=== PATIENT | female | born 1995 | race Caucasian/White ===

== ENCOUNTER → 2018-03-28 19:55 | Observation (INO) ==
[2018-03-28 18:42] LABS: Amphetamine Screen,Urine Negative ng/mL (Cutoff=1000); Barbiturate Screen,Urine Negative ng/mL (Cutoff=200); Benzodiazepines Screen,Urine Negative ng/mL (Cutoff=200); Cannabinoid Screen,Urine Negative ng/mL (Cutoff = 50); Cocaine Screen,Urine Negative ng/mL (Cutoff= 300); Opiate Screen,Urine Negative ng/mL (Cutoff=300); Phencyclidine Screen,Urine Negative ng/mL (Cutoff=25)
[2018-03-28 19:16] LABS: Bilirubin,Urine Negative (Negative); Blood,Urine Negative (Negative); Clarity,Urine Cloudy (Clear); Color,Urine Yellow (Yellow); Glucose,Urine (UA) Normal (Normal); Ketones,Urine Negative (Negative); Leukocyte Esterase,Urine Negative (Negative); Nitrite,Urine Negative (Negative); Protein,Urine Negative (Neg-Trace); Specific Gravity,Urine 1.018 (1.010-1.025); Urobilinogen,Urine Normal (Normal)
[2018-03-28 19:17] LABS: Bacteria,Urine Few per hpf (None-Few); Hyaline Casts,Urine None Seen per lpf (None-Few); Squamous Epithelial Cell,Urine Many per lpf (None-Few)
--- NOTE | 2018-03-28 19:53 | OB/GYN Progress Note ---
Date of Encounter: 03/28/18 Time of Encounter: 19:51 - Assessment and Plan (1) 30 weeks gestation of Current Visit: Yes Status: Acute (2) Back pain affecting in third trimester Current Visit: Yes Status: Acute Urinalysis negative for UTI Speculum exam shows thin white vaginal discharge, negative ferning, vaginosis panel sent Cervix closed and no contractions seen on monitoring, reactive tracing Discharged home with labor and when to return to triage precautions. Patient listed pharmacy and callback number for results of vaginosis panel when resulted Subjective - Subjective Interval history: 30+1 weeks gestation presents to triage with complaints of lower back and abdominal pain. Patient states she started to have lower back and abdominal pain yesterday, and it has increased today. Patient states there are times the lower abdominal pain feels constant. Denies dysuria, urgency, frequency. Reports good movement, denies vaginal bleeding, but does report an increase in white vaginal discharge and fell she was leaking some clear fluid earlier. Patient with care with Dr. Tripp Antepartum ROS: loss of fluid, movement normal, no vaginal bleeding, no contractions Objective - Vital Signs Vital Signs: Intake and Output 03/28/18 03/28/18 03/28/18 07:59 15:59 23:59 Other: Weight 78.4 kg Patient Weight 03/28/18 23:59 Weight 78.4 kg - Exam FHR: auscultation normal FHR comments: Baseline 135 Abdomen: Present: normal appearance, soft, gravid Cervical dilation: closed Comments: - cva tenderness. - Labs Labs: Abnormal lab results Urine Clarity Cloudy (Clear) A 03/28/18 18:20 Urine Microscopic RBC 3-5 per hpf (0-3) H 03/28/18 18:20 Urine Microscopic WBC 5-15 per hpf (0-3) H 03/28/18 18:20 Ur Squamous Epith Cells Many per lpf (None-Few) H 03/28/18 18:20
[2018-03-28 20:02] LABS: Candida DNA ***DETECTED*** (Not Detect); Gardnerella DNA Not Detected (Not Detect); Trichomonas DNA Not Detected (Not Detect)
== END | disposition home or self-care (01) ==
LOC: 1NENULAB
PROVIDERS: ADMIT Advanced Practice Midwife; ATTEND Advanced Practice Midwife

== ENCOUNTER 2022-05-09 10:00 | Observation (INO) ==
[2022-05-09] MEDS ORDERED: Doxycycline 100 MG in 0.9 % Sodium Chloride Mini Bag 100 ML IVPB ONE (10:06)
[2022-05-09] MEDS: Ringers Solution, Lactated 1,000 ML IVC SCH ×2 (10:51→11:57)
[2022-05-09 10:56] VITALS: O2SAT 100
[2022-05-09 11:09] LABS: Basophils % 0.3 %; Eosinophils # 0.1 K/mcL (0.0-0.6); Eosinophils % 0.9 %; Hematocrit 38.2 % (35.3-44.9); Hemoglobin 13.3 g/dL (11.5-15.4); Immature Granulocytes % 0.1 % (0-4); Lymphocytes # 1.6 K/mcL (0.6-4.6); Lymphocytes % 22.5 %; Mean Corpuscular HGB Conc 34.8 g/dL (31.6-35.5); Mean Corpuscular Hemoglobin 33.5 pg (28.0-33.3); Mean Corpuscular Volume 96.2 fL (83.0-100.0); Mean Platelet Volume 11.8 fL (9.4-12.4); Monocytes # 0.5 K/mcL (0.0-1.3); Neutrophils # 4.9 K/mcL (1.6-8.9); Platelet Count 189 K/mcL (140-400); Red Blood Count 3.97 M/mcL (3.82-4.97); Red Cell Distribution Width 11.3 % (11.5-14.5); Segmented Neutrophils % 69.2 %
[2022-05-09] MEDS ORDERED: Famotidine 20 MG/2 ML VIAL IVP ONE (11:30)
[2022-05-09] MEDS ORDERED: Metoclopramide 10 MG/2 ML VIAL IVP ONE (11:30)
[2022-05-09] MEDS ORDERED: *HR* Propofol 200 MG/20 ML VIAL IVP ONE (12:10)
[2022-05-09] MEDS ORDERED: *HR* Midazolam HCl 2 MG/2 ML VIAL ONE (12:10)
[2022-05-09] MEDS ORDERED: *HR* FentaNYL (PF) 100 MCG/2 ML VIAL ONE (12:10)
[2022-05-09] MEDS ORDERED: Lidocaine -MPF 2% 2 ML VIAL ONE ×2 (12:13→12:25)
[2022-05-09] MEDS ORDERED: Ketorolac 30 MG/ML VIAL ONE (12:25)
[2022-05-09 14:26] VITALS: TEMP 98.3
[2022-05-09 15:00] VITALS: BP 116/63; PULSE 82
== END 2022-05-09 15:30 | disposition home or self-care (01) ==
LOC: SAMDAY 10:00 → 1NENULAB 10:00
PROVIDERS: ADMIT Student in an Organized Health Care Education/Training Program; ATTEND Student in an Organized Health Care Education/Training Program